=== PATIENT | female | born 1990 | race Caucasian/White ===

== ENCOUNTER 2023-05-12 03:41 | Inpatient (IN) ==
[2023-05-12] MEDS: Vitamin THERAPEUTIC TAB PO SCH (09:10)
[2023-05-13] MEDS: Vitamin THERAPEUTIC TAB PO SCH (09:59)
[2023-05-14] MEDS: Vitamin THERAPEUTIC TAB PO SCH (09:40)
[2023-05-15] MEDS: Vitamin THERAPEUTIC TAB PO SCH (08:30)
[2023-05-15 08:46] LABS: HDL Cholesterol 43.9 mg/dL
[2023-05-15] MEDS: Al Hydrox/Mg Hydrox/Simet LIQ 30 ML UDC PO PRN (18:46)
[2023-05-16] MEDS: Vitamin THERAPEUTIC TAB PO SCH (09:44)
[2023-05-16] MEDS: Al Hydrox/Mg Hydrox/Simet LIQ 30 ML UDC PO PRN (12:30)
[2023-05-17] MEDS: Vitamin THERAPEUTIC TAB PO SCH (08:38)
[2023-05-18] MEDS: Al Hydrox/Mg Hydrox/Simet LIQ 30 ML UDC PO PRN (08:24)
[2023-05-18] MEDS: Vitamin THERAPEUTIC TAB PO SCH (08:24)
[2023-05-19] MEDS: Vitamin THERAPEUTIC TAB PO SCH (07:21)
[2023-05-20] MEDS: Vitamin THERAPEUTIC TAB PO SCH (08:16)
[2023-05-21] MEDS: Vitamin THERAPEUTIC TAB PO SCH (07:13)
[2023-05-22] MEDS: Vitamin THERAPEUTIC TAB PO SCH (07:44)
[2023-05-22 09:00] VITALS: BP 111/53
== END 2023-05-22 11:45 | disposition home or self-care (01) | DRG 885 ==
LOC: ED 03:41 → BSU 06:30
PROVIDERS: ADMIT Psychiatry & Neurology Psychiatry; ATTEND Student in an Organized Health Care Education/Training Program